=== PATIENT | female | born 1955 | race Caucasian/White ===

== ENCOUNTER 2017-09-14 08:26 | Outpatient (CLI) | payer BC | END 2017-09-14 08:27 | disposition home or self-care (01) | LOC: BICMAMMO 08:26 | PROVIDERS: ATTEND Physician Assistant | DX: Z12.31 Encounter for screening mammogram for malignant neoplasm of breast (principal) | CPT/HCPCS: 77067 ==

== ENCOUNTER 2018-01-23 11:41 | Outpatient (CLI) | payer BC ==
--- NOTE | 2018-01-23 13:20 | CT ---
LOW DOSE SCREENING LUNG CT: HISTORY: Quit smoking in September (patient smoked 42 years). COMPARISON: None. TECHNIQUE: A noncontrast low-dose screening CT of the chest is performed utilizing institution protocol. Reform atted images are submitted for interpretation. FINDINGS: Lung-RADS screen specific (lung-RADS category 3): There is a 1 cm nodule with peripheral ground glas s density in the right lower lobe. Additional nodules are not appreciated. Pulmonary significant incidentals (lung-RADS category S): None. Pulmonary incidentals: Calcified granuloma in the left lower lobe. No additional abnormalities appr eciated. Other incidentals: Minimal atherosclerosis of the aorta. Coronary artery calcifications are identif ied. IMPRESSION: 1. Lung-RADS category 3: Indeterminate lesion. Ground glass nodule in the right lower lobe. Follo w-up CT in three months is recommended. 2. Lung-RADS category S: Negative. No new or unknown potentially significant incidental findings. 3. Other incidentals as above. RECOMMENDATIONS: Follow-up chest CT in three months. POS: [facility]
== END 2018-01-23 11:42 | disposition home or self-care (01) ==
LOC: CT 11:41
PROVIDERS: ATTEND Physician Assistant
DX: F17.210 Nicotine dependence, cigarettes, uncomplicated (principal)
CPT/HCPCS: G0297

== ENCOUNTER 2018-09-18 10:08 | Outpatient (CLI) | payer BC | END 2018-09-18 10:09 | disposition home or self-care (01) | LOC: BICMAMMO 10:08 | PROVIDERS: ATTEND Physician Assistant | DX: Z12.31 Encounter for screening mammogram for malignant neoplasm of breast (principal) | CPT/HCPCS: 77063; 77067 ==

== ENCOUNTER 2019-01-05 16:45 | Emergency (ER) | payer BC ==
[2019-01-05] MEDS ORDERED: Ketorolac Tromethamine 30 MG/ML VIAL ONE (17:17)
--- NOTE | 2019-01-05 17:45 | RAD ---
LEFT KNEE FOUR VIEWS: 01/05/19 HISTORY: Injury left knee pain. FINDINGS/IMPRESSION: There are degenerative changes. No fracture or dislocation or bony destruction seen. POS: [facility]
== END 2019-01-05 17:44 | disposition home or self-care (01) ==
LOC: SCSER 16:45
DX: M25.562 Pain in left knee (principal); I10 Essential (primary) hypertension; F17.210 Nicotine dependence, cigarettes, uncomplicated; Z86.73 Personal history of transient ischemic attack (TIA), and cerebral infarction without residual deficits; Z79.82 Long term (current) use of aspirin; Z79.899 Other long term (current) drug therapy
CPT/HCPCS: 96372; J1885

== ENCOUNTER 2019-01-17 08:32 | Outpatient (CLI) | payer BC ==
--- NOTE | 2019-01-17 10:24 | MRI ---
LEFT KNEE MRI WITHOUT IV CONTRAST: Date: 01/17/19 HISTORY: S83.242A, pain following knee injury, prior arthroscopic surgery many years ago. TECHNIQUE: Multiplanar, multisequence MRI examination of the left knee is performed. FINDINGS: Minimal joint fluid is noted. Irregular cartilage loss involving the medial patellar facet with some subchondral cystic changes. Somewhat complicated appearing popliteal fossa cyst. Posterior lateral ti bial plateau subchondral fracture with some adjacent marrow edema. Flap-type tear of the medial menis cus extending from near the posterior root to the posterior body with a displaced meniscal flap at th e posterior body level. Small free edge tear of the posterior horn of the lateral meniscus. Very mini mal edematous changes within the popliteus muscle and soleus muscle, evidence for mild strain. Medial and lateral collateral ligament complexes, anterior and posterior cruciate ligaments, and quadriceps and patellar tendons appear intact. Extensor mechanism is unremarkable. IMPRESSION: Nondisplaced subchondral fracture involving the posterolateral tibial plateau with some adjacent mirian ow edema. Flap tear of the medial meniscus. Small free edge tear of the posterior horn of the lateral meniscus. Minimal strain within the soleus and popliteus muscles. Medial patellar cartilage loss and subchondral cystic changes. POS: [facility]
== END 2019-01-17 08:33 | disposition home or self-care (01) ==
LOC: TBSIIMAG 08:32
PROVIDERS: ATTEND Orthopaedic Surgery
DX: Z03.89 Encounter for observation for other suspected diseases and conditions ruled out (principal); S82.145A Nondisplaced bicondylar fracture of left tibia, initial encounter for closed fracture; S83.242A Other tear of medial meniscus, current injury, left knee, initial encounter; S83.282A Other tear of lateral meniscus, current injury, left knee, initial encounter; S86.812A Strain of other muscle(s) and tendon(s) at lower leg level, left leg, initial encounter

== ENCOUNTER 2019-01-28 10:36 | Outpatient (CLI) | payer BC ==
[2019-01-28 12:34] LABS: Hemoglobin 14.1 g/dL (12.0-16.0); Mean Corpuscular HGB CONC 33.9 g/dL (32.0-36.0); Mean Corpuscular Hemoglobin 32.8 pg (27.0-31.0); Mean Corpuscular Volume 96.9 fL (78.0-98.0); Platelet Count 168 thou/uL (130-400); RBC Distribution Width 11.5 % (11.5-14.5); Red Blood Cell (RBC) Count 4.29 mill/uL (4.20-5.40); White Blood Cell (WBC) Count 7.5 thou/uL (4.8-10.8)
[2019-01-28 12:51] LABS: Anion Gap 12 mmol/L (10-20); BUN (Urea Nitrogen) 13 mg/dL (9.8-20.1); Calc. Creatinine Clearance 0 mL/min (70-130); Calcium 9.7 mg/dL (7.8-10.44); Carbon Dioxide 27 mmol/L (23-31); Chloride 106 mmol/L (98-107); Estimated GFR-MDRD 72; Glucose 81 mg/dL (80-115); Potassium 3.9 mmol/L (3.5-5.1); Sodium 141 mmol/L (136-145)
--- NOTE | 2019-01-30 11:51 | EKG ---
Test Reason : Blood Pressure : / mmHG Vent. Rate : 066 BPM Atrial Rate : 066 BPM P-R Int : 154 ms QRS Dur : 082 ms QT Int : 418 ms P-R-T Axes : 076 052 063 degrees QTc Int : 438 ms Normal sinus rhythm with premature atrial contractions Biatrial enlargement Abnormal ECG When compared with ECG of 03-JUN-2013 21:27, T wave amplitude has decreased in Anterior leads Confirmed by DR. Warner CLINTON ([id number]) on 01/30/2019 11:51:36 AM Referred By: RAJAN Confirmed By:DR. Warner CLINTON
== END 2019-01-28 10:37 | disposition home or self-care (01) ==
LOC: LABBT 10:36
PROVIDERS: ATTEND Orthopaedic Surgery
DX: Z01.818 Encounter for other preprocedural examination (principal); S83.242A Other tear of medial meniscus, current injury, left knee, initial encounter; S83.282A Other tear of lateral meniscus, current injury, left knee, initial encounter
CPT/HCPCS: 80048; 85027; 93005; 93010

== ENCOUNTER 2019-01-29 09:46 | Day surgery (SDC) | payer BC ==
[2019-01-28 11:04] VITALS: BMI 29.8
[2019-01-29] MEDS ORDERED: Fentanyl 100 MCG/2 ML VIAL ONE ×2 (12:36→15:06)
[2019-01-29] MEDS ORDERED: Bupivacaine HCl 0.5%/Epinephrine 1:200,000/PF 30 ml Vial ONE (12:58)
[2019-01-29] MEDS ORDERED: Lidocaine 1% PF 5 ML VIAL ONE (13:18)
[2019-01-29] MEDS ORDERED: PHENYLEPHRINE-NS 100 MCG/ML 10 ML SYRINGE ONE (13:18)
[2019-01-29] MEDS ORDERED: Ondansetron PF 4 MG/2 ML Vial ONE (13:18)
[2019-01-29] MEDS ORDERED: Ketorolac Tromethamine 30 MG/ML VIAL ONE (13:18)
[2019-01-29] MEDS ORDERED: Dexamethasone 20 MG/5 ML VIAL ONE (13:18)
[2019-01-29] MEDS ORDERED: PROPOFOL 200 MG/20 ML VIAL ONE (13:18)
--- NOTE | 2019-01-29 18:05 | OP ---
DATE OF PROCEDURE: 01/29/2019 PREOPERATIVE DIAGNOSIS: Tear of the medial and lateral menisci of the left knee. POSTOPERATIVE DIAGNOSIS: Tear of the medial and lateral menisci of the left knee. PROCEDURE PERFORMED: Arthroscopy of the left knee with partial medial and partial lateral meniscectomy. ANESTHESIA: General. DESCRIPTION OF PROCEDURE: The patient was given preoperative IV antibiotics, taken to the operating room, and placed in the supine position. Satisfactory general anesthesia was performed. The left lower extremity was placed in a leg vale and sterilely prepped and draped in the usual fashion. After exsanguination, tourniquet to the left proximal thigh was raised to 250 mmHg. The knee was scoped through the usual anteromedial and anterolateral portals. Upon entering the suprapatellar pouch, the patient was noted to have some mild synovitis. Patellofemoral joint had fairly normal articular cartilage. Patella rode well in the femoral groove. Medial and lateral gutters were free of loose bodies. Intercondylar notch revealed a very small tear involving the proximal medial aspect of the anterior cruciate ligament, but the great majority of the ligament was still intact. The lateral compartment had complex tear involving the posterior horn and into the body. There was some chondral defects over the lateral tibial plateau. Using the shaver and surface ArthroWand, partial lateral meniscectomy was performed. The medial compartment had a cartilaginous defect in the weightbearing surface of the medial femoral condyle, but the great majority of the articular cartilage was intact and looked very healthy. Shaver was used to smooth down the borders of the cartilaginous defect. There was a tear in the posterior horn of the medial meniscus, and a partial meniscectomy was performed using the surface and the shaver. During the procedure, all debris was irrigated out of the knee joint. The instruments were removed. The portals were closed with 3-0 Rapide. The knee joint was injected with 27 mL of 0.5% Marcaine with epinephrine. Sterile dressing was applied. Tourniquet was released. The leg was taken out of the leg vale. The patient was awakened, extubated, and transferred to recovery room in stable condition. ESTIMATED BLOOD LOSS: None. COMPLICATIONS: None. TOURNIQUET TIME: 24 minutes. DISCHARGE MEDICATION: Tylenol No. 4, one every 6 hours as needed for pain, #40. FOLLOWUP: Follow up in the office in next week. Job ID: [id number]
== END 2019-01-29 16:13 | disposition home or self-care (01) ==
LOC: SDC 09:46
PROVIDERS: ATTEND Orthopaedic Surgery
PROC: 0SBD4ZZ Excision of Left Knee Joint, Percutaneous Endoscopic Approach (ICD-10-PCS; principal; 2019-01-29)
DX: S83.272A Complex tear of lateral meniscus, current injury, left knee, initial encounter (principal); S83.242A Other tear of medial meniscus, current injury, left knee, initial encounter; M65.88 Other synovitis and tenosynovitis, other site; I10 Essential (primary) hypertension; Z79.82 Long term (current) use of aspirin; Z79.899 Other long term (current) drug therapy; Z98.890 Other specified postprocedural states; X50.1XXA Overexertion from prolonged static or awkward postures, initial encounter
CPT/HCPCS: J0670; J0690; J1100; J1885; J2001; J2405; J2704; J3010

== ENCOUNTER 2022-04-13 10:53 | Outpatient (CLI) | payer MEDICARE | END 2022-04-13 10:54 | disposition home or self-care (01) | LOC: BICCT 10:53 | PROVIDERS: ATTEND Physician Assistant | DX: Z12.31 Encounter for screening mammogram for malignant neoplasm of breast (principal); R91.1 Solitary pulmonary nodule | CPT/HCPCS: 71260; 77063; 77067 ==

== ENCOUNTER 2022-07-21 08:16 | Outpatient (CLI) | payer MEDICARE | END 2022-07-21 08:17 | disposition home or self-care (01) | LOC: RAD 08:16 | PROVIDERS: ATTEND Internal Medicine Critical Care Medicine | DX: R06.00 Dyspnea, unspecified (principal) | CPT/HCPCS: 71046 ==

== ENCOUNTER 2023-06-23 07:54 | Outpatient (CLI) | payer MEDICARE ==
[2023-06-23] MEDS ORDERED: Iopamidol 370 76% 100 ML VIAL ONE (10:04)
== END 2023-06-23 07:55 | disposition home or self-care (01) ==
LOC: BICCT 07:54
PROVIDERS: ATTEND Internal Medicine Critical Care Medicine
DX: R91.1 Solitary pulmonary nodule (principal); J98.4 Other disorders of lung
CPT/HCPCS: 71260; Q9967

== ENCOUNTER 2023-06-23 08:29 | Outpatient (CLI) | payer MEDICARE | END 2023-06-23 08:30 | disposition home or self-care (01) | LOC: BICMAMMO 08:29 | PROVIDERS: ATTEND Physician Assistant | DX: Z12.31 Encounter for screening mammogram for malignant neoplasm of breast (principal); Z80.3 Family history of malignant neoplasm of breast | CPT/HCPCS: 77063; 77067 ==

== ENCOUNTER 2023-07-05 14:10 | Outpatient (CLI) | payer MEDICARE | END 2023-07-05 14:11 | disposition home or self-care (01) | LOC: BICMAMMO 14:10 | PROVIDERS: ATTEND Physician Assistant | DX: Z13.820 Encounter for screening for osteoporosis (principal); Z78.0 Asymptomatic menopausal state; M85.89 Other specified disorders of bone density and structure, multiple sites | CPT/HCPCS: 77080 ==

== ENCOUNTER 2024-08-26 13:18 | Outpatient (CLI) | payer MEDICARE | END 2024-08-26 13:19 | disposition home or self-care (01) | LOC: BICCT 13:18 | PROVIDERS: ATTEND Internal Medicine Critical Care Medicine | DX: Z12.2 Encounter for screening for malignant neoplasm of respiratory organs (principal); F17.210 Nicotine dependence, cigarettes, uncomplicated; R91.1 Solitary pulmonary nodule; J98.4 Other disorders of lung | CPT/HCPCS: 71271 ==